=== PATIENT | male | born 1965 | race Caucasian/White ===

== ENCOUNTER 2025-03-27 01:23 | Observation (INO) | payer OTHER ==
[2025-03-27] MEDS ORDERED: HYDROMORPHONE HCL 1 MG/ML INJ ONE ×2 (02:07→03:20)
[2025-03-27] MEDS ORDERED: ONDANSETRON 4 MG/2 ML VIAL ONE ×2 (02:07→03:10)
[2025-03-27] MEDS ORDERED: LABETALOL 20 MG/4ML SYRINGE IV ONE ×2 (02:07→04:50)
[2025-03-27 02:27] LABS: PT Prothrombin Time 12.4 SECONDS (10-13.0); Protime INR 1.1
[2025-03-27 02:30] LABS: Absolute Lymphocytes (CBC) 0.4 K/uL (0.7-4.9); Hematocrit 44.7 % (39.6-49.0); Hemoglobin 15.7 g/dL (13.6-17.9); MCH 31.2 pg (27.0-35.0); MCHC 35.0 g/dL (32.0-36.0); MCV 89.0 fL (80-100); MPV 8.1 fL (7.6-11.3); Nucleated RBC Absolute Count 0.0 (0-0); Nucleated Red Blood Cells % 0.2 % (0-0); RBC Red Blood Cell Count 5.02 M/uL (4.33-5.43); White Blood Count 3.40 thou/uL (4.3-10.9)
[2025-03-27 02:38] LABS: ALT/SGPT 125.0 U/L (16-61); AST/SGOT 106.0 U/L (15-37); Albumin 4.3 g/dL (3.4-5.0); Albumin/Globulin Ratio 1.3 (1.1-1.8); Alkaline Phosphatase 64.0 U/L (45-117); Anion Gap 14.5 mEq/L (5.0-15.0); BUN Blood Urea Nitrogen 12.0 mg/dL (7-18); Bilirubin Indirect, Calculated 1.4 mg/dL (0.2-0.8); Globulin 3.4 g/dL (2.3-3.5); Glucose Level 149.0 mg/dL (74-106); Magnesium 1.8 mg/dL (1.6-2.4); NT PRO-BNP 154.0 pg/mL (<125); Potassium 3.5 mEq/L (3.5-5.1); Troponin High Sensitivity 50.0 pg/mL (<58.9)
--- NOTE | 2025-03-27 02:48 | RAD REPORT ---
CLINICAL HISTORY: Pain. COMPARISON: None. TECHNIQUE: XR SHOULDER 2 OR MORE VIEWS LEFT 03/27/2025 1:31 AM CDT FINDINGS: There is no fracture. Joint spaces are preserved. Soft tissues are unremarkable. IMPRESSION: No acute osseous findings. Electronically signed by: Antwon Goodwin MD 03/27/2025 02:36 AM CDT Due to temporary technical issues with the PACS/[facility] reporting system, reports are being arlene d by the in-house radiologist without review as a courtesy to ensure prompt reporting the interpreting radiologist is fully responsible for the content of the report Transcribed Date/Time: 03/27/2025 2:48 AM
--- NOTE | 2025-03-27 04:11 | RAD REPORT ---
EXAM DESCRIPTION: CT NECK WITH IV CONTRAST 03/27/2025 3:45 AM CDT CLINICAL HISTORY: 59 years, Male, Left neck pain and swelling. COMPARISON: None. TECHNIQUE: Soft tissue protocol CT of the neck utilizing 3 mm slight thickness at 3 mm interval reconstruction a fter the administration of intravenous contrast. Subsequent 2-D multiplanar reformats in the coronal and sagittal plane were performed and reviewed. All CT scans at this facility use dose modulation, iterative reconstruction, and/or weight based dosi ng when appropriate to reduce radiation dose to as low as reasonably achievable. FINDINGS: The presence of the entire amalgam creates streak artifact limiting diagnostic value at the oropharyn x Sinuses: Visualized paranasal sinuses and mastoid air cells are clear. Soft tissues: No acute soft tissue edema. No retropharyngeal edema. Salivary glands: The parotid glands and submandibular glands demonstrate symmetric with normal size a nd configuration. No evidence for significant calculi. Pharynx: Epiglottis is normal. No airway compromise. No suspicious enhancing lesions. Mucosal surfaces are symmetric. [place] tonsils: [place] tonsils demonstrate to be normal in size and configuration. No evidence fo r peritonsillar abscess. Surface mucous of the base of the tongue: This surface mucosal demonstrate no significant surface abn ormalities in/or abnormal enhancing lesions.. Vallecula: The vallecula demonstrate unremarkable. Piriform sinus: Piriform sinuses demonstrate to be unremarkable. No significant abnormal masses.. Vocal cords: .Unremarkable. Proximal trachea: The proximal trachea demonstrate to be patent with no significant lesions. Nodes: No cervical lymphadenopathy is identified. Bones: No acute bone findings. Vascular: No vascular abnormalities identified. Minimal carotid bulb artery calcification. Thyroid: Within normal limits. Lung apices are clear. IMPRESSION: Unremarkable CT of the neck with contrast. Electronically signed by: Yobany Greer MD 03/27/2025 03:53 AM CDT Due to temporary technical issues with the PACS/[employer] reporting system, reports are being ralene d by the in-house radiologist without review as a courtesy to ensure prompt reporting the interpreting radiologist is fully responsible for the content of the report. Transcribed Date/Time: 03/27/2025 4:10 AM
--- NOTE | 2025-03-27 04:37 | RAD REPORT ---
CLINICAL HISTORY: Left shoulder and neck pain, dyspnea. COMPARISON: None. TECHNIQUE: CT CHEST ANGIOGRAPHY WITH IV CONTRAST on 03/27/2025 1:48 AM CDT. MIPS reconstructions were generated. This exam was performed according to our departmental dose-optimization program, which includes autom ated exposure control, adjustment of the mA and/or kV according to patient size and/or use of iterative reconstruction technique. MIP images were generated. FINDINGS: Thoracic aorta is normal in course and caliber without aneurysm or dissection. Pulmonary arteries are suboptimally opacified with no large central filling defects. There are postoperative changes at the GE junction. The heart is normal in size. There is no pericardial effusion. Intrathoracic lymph nodes are not enla rged. There is no pleural effusion, pleural thickening or pneumothorax. Central airways are patent. Lungs a re clear with no consolidation, mass or interstitial lung disease. There are no acute abnormalities within the limited images of the upper abdomen. There are no acute osseous findings. No suspicious bony lesions. IMPRESSION: No aortic dissection or aneurysm. No large or central pulmonary embolus. No pneumonia. Electronically signed by: Antwon Goodwin MD 03/27/2025 04:33 AM CDT RP Due to temporary technical issues with the PACS/[employer] reporting system, reports are being arlene d by the in-house radiologist without review as a courtesy to ensure prompt reporting the interpreting radiologist is fully responsible for the content of the report. Transcribed Date/Time: 03/27/2025 4:37 AM
[2025-03-27] MEDS ORDERED: METOCLOPRAMIDE 10 MG/2mL INJ ONE (04:49)
[2025-03-27] MEDS ORDERED: HYDRALAZINE HCL 20 MG/ML VIAL ONE (05:13)
--- NOTE | 2025-03-27 06:12 | EDPHYS ---
Physician Documentation [facility] Name: Waldemar Loza Age: 59 yrs Sex: Male : 1965 Arrival Date: 03/27/2025 Time: 01:23 Bed 4 Private MD: ED Physician Farhan Kaur HPI: 03/27 02:03 This 59 yrs old Male presents to ER via Ambulatory with complaints of Shoulder Pain. 3 02:03 59-year-old male with history of hypertension, mild diabetes on Mounjaro, presents to [facility] the ED with chief complaint left-sided neck pain and shoulder pain for 3 days progressively getting worse and now "swollen". He denies any direct trauma and states he "might of slept on it wrong". He also endorses shortness of breath on occasion without associated other symptoms. He denies chest pain, fever, cough, URI symptoms, known sick contacts, travel history,: Immobilization, prior DVT or PE, headache, back pain, abdominal pain, nausea, vomiting, diarrhea, syncope, near syncope, extremity pain, or any other signs or symptoms on ROS at this time.. Historical: - Allergies: 01:35 PENICILLINS; cp4 - Immunization history:: Adult Immunizations up to date. - Infectious Disease History:: Denies. - Social history:: Smoking status: Patient denies any tobacco usage or history of. ROS: 02:07 Constitutional: Negative for fever, chills, and weight loss, Eyes: Negative for injury, sp3 pain, redness, and discharge, ENT: Negative for injury, pain, and discharge, Neck: Negative for injury, pain, and swelling, Cardiovascular: Negative for chest pain, palpitations, and edema, Abdomen/GI: Negative for abdominal pain, nausea, vomiting, diarrhea, and constipation, Back: Negative for injury and pain, Skin: Negative for injury, rash, and discoloration, Neuro: Negative for headache, weakness, numbness, tingling, and seizure, Psych: Negative for depression, anxiety, suicide ideation, homicidal ideation, and hallucinations, Allergy/Immunology: Negative for hives, rash, and allergies, Endocrine: Negative for neck swelling, polydipsia, polyuria, polyphagia, and marked weight changes, Hematologic/Lymphatic: Negative for swollen nodes, abnormal bleeding, and unusual bruising, 02:07 All other systems are negative, Exam: 01:59 ECG was reviewed by the Attending Physician. EKG demonstrates normal sinus rhythm at 93 sp3 bpm with normal intervals, normal QRS, normal axis, nonspecific diffuse ST/T changes without evidence of acute ischemia. 02:07 Constitutional: This is a well developed, well nourished patient who is awake, alert, sp3 and in no acute distress. Eyes: Pupils equal round and reactive to light, extra-ocular motions intact. Lids and lashes normal. Conjunctiva and sclera are non-icteric and not injected. Cornea within normal limits. Periorbital areas with no swelling, redness, or edema. ENT: Nares patent. No nasal discharge, no septal abnormalities noted. External auditory canals are clear. Oropharynx with no redness, swelling, or masses, exudates, or evidence of obstruction, uvula midline. Mucous membranes moist. Chest/axilla: Normal chest wall appearance and motion. Nontender with no deformity. No lesions are appreciated. Cardiovascular: Regular rate and rhythm with a normal S1 and S2. No gallops, murmurs, or rubs. Normal PMI, no JVD. No pulse deficits. Respiratory: Lungs have equal breath sounds bilaterally, clear to auscultation and percussion. No rales, rhonchi or wheezes noted. No increased work of breathing, no retractions or nasal flaring. Abdomen/GI: Soft, non-tender, with normal bowel sounds. No distension or tympany. No guarding or rebound. No evidence of tenderness throughout. Back: No spinal tenderness. No costovertebral tenderness. Full range of motion. Skin: Warm, dry with normal turgor. Normal color with no rashes, no lesions, and no evidence of cellulitis. MS/ Extremity: Pulses equal, no cyanosis. Neurovascular intact. Full, normal range of motion. Neuro: Awake and alert, GCS 15, oriented to person, place, time, and situation. Cranial nerves II-XII grossly intact. Motor strength 5/5 in all extremities. Sensory grossly intact. Cerebellar exam normal. Normal gait. Psych: Awake, alert, with orientation to person, place and time. Behavior, mood, and affect are within normal limits. 02:07 Head/face: 02:09 Neck: Pain to palpation of the left lateral lower neck. Mild swelling noted. Breath sp3 sounds are clear., Vital Signs: 01:33 BP 204 / 121; Pulse 106; Resp 18; Temp 98.3; Pulse Ox 99% ; Weight 90.72 kg; Height 6 cp4 ft. 0 in. ; Pain 8/10; 02:19 BP 176 / 99; Pulse 89; Resp 18; Pulse Ox 99% ; cp4 03:17 BP 190 / 110; Pulse 87; Resp 16; Pulse Ox 97% ; vc1 04:41 BP 190 / 108; Pulse 85; Resp 18; Pulse Ox 95% ; cp4 05:15 BP 179 / 98; Pulse 73; Resp 18; Pulse Ox 98% ; cp4 05:41 BP 158 / 92; Pulse 76; Resp 18; Pulse Ox 95% ; cp4 06:34 BP 164 / 94; Pulse 76; Resp 18; Pulse Ox 97% ; cp4 01:33 Body Mass Index 27.12 (90.72 kg, 182.88 cm) cp4 01:33 Pain Scale: Adult cp4 MDM: 01:30 Medical Screening Exam initiated sp3 02:09 Data reviewed: vital signs, nurses notes, lab test result(s), EKG, radiologic studies. sp3 ED course: 59-year-old male with PMH above now with left shoulder and left neck pain for 3 days and mild shortness of breath. Differential diagnosis is broad. Consider musculoskeletal strain, torticollis, left shoulder strain, acute coronary syndrome, pulmonary pathology, SVC syndrome, among others. Blood pressure also noted to be high which could be due to essential hypertension versus pain versus both. Workup will include EKG, left shoulder x-ray put in by nursing staff, CT scan of the chest PE protocol, CT scan of the neck soft tissue with IV contrast, general labs and general supportive care. Dilaudid and Zofran for symptomatic control with labetalol if needed for further blood pressure management. Disposition pending workup and patient course.. 04:49 ED course: Patient states pain is improved however he still nauseated. I discussed his sp3 lab work with him including elevated bilirubin and LFTs which he states his doctor has been following and is not acute. CT scan of the neck and chest are negative. We will add Reglan IV, labetalol due to recurrence of hypertension and second troponin. Likely 23-hour observation with serial cardiac markers, blood pressure control and follow-up of symptoms.. 06:10 ED course: Blood pressure now 158/80. We will place in observation with serial cardiac sp3 markers and blood pressure control.. 03/27 01:48 Order name: Basic Metabolic Panel; Complete Time: 02:49 sp3 03/27 01:48 Order name: CBC with Diff; Complete Time: 02:49 sp3 03/27 01:48 Order name: LFT's; Complete Time: 02:49 sp3 03/27 01:48 Order name: Magnesium; Complete Time: 02:49 sp3 03/27 01:48 Order name: NT PRO-BNP; Complete Time: 02:49 sp3 03/27 01:48 Order name: PT-INR; Complete Time: 02:49 sp3 03/27 01:48 Order name: Troponin HS; Complete Time: 02:49 sp3 03/27 04:49 Order name: Troponin High Sensitivity; Complete Time: 06:10 sp3 03/27 07:04 Order name: CBC with Automated Diff EDMS 03/27 07:04 Order name: CBC with Automated Diff EDMS 03/27 07:04 Order name: CBC with Automated Diff EDMS 03/27 07:04 Order name: CBC with Automated Diff EDMS 03/27 07:04 Order name: Comprehensive Metabolic Panel EDMS 03/27 07:04 Order name: Comprehensive Metabolic Panel EDMS 03/27 07:04 Order name: Comprehensive Metabolic Panel EDMS 03/27 07:04 Order name: Comprehensive Metabolic Panel EDMS 03/27 07:04 Order name: Troponin High Sensitivity EDMS 03/27 07:04 Order name: Troponin High Sensitivity EDMS 03/27 07:04 Order name: Troponin High Sensitivity EDMS 03/27 01:31 Order name: XRAY Shoulder LEFT 2 view; Complete Time: 06: sp3 03/27 01:48 Order name: CT Chest For PE Angio; Complete Time: 06: sp3 03/27 02:08 Order name: CT Soft Tissue Neck W/contr; Complete Time: 06: sp3 03/27 01:48 Order name: Cardiac monitoring; Complete Time: 01:57 sp3 03/27 01:48 Order name: EKG - Nurse/Tech; Complete Time: 01:57 sp3 03/27 01:48 Order name: IV Saline Lock; Complete Time: 02:05 3 03/27 01:48 Order name: Labs collected and sent; Complete Time: 02:05 sp3 03/27 01:48 Order name: O2 Per Protocol; Complete Time: 01:57 sp3 03/27 01:48 Order name: O2 Sat Monitoring; Complete Time: 01:57 sp3 03/27 01:48 Order name: NPO; Complete Time: 01: sp3 Administered Medications: 02:11 Drug: HYDROmorphone IVP 1 mg IVP once Route: IVP; Site: right antecubital; cp4 03:22 Follow up: Response: No adverse reaction; Pain is decreased cp4 02:11 Drug: Ondansetron IVP 4 mg IVP once; over 2 minutes Route: IVP; Site: right antecubital;cp4 03:22 Follow up: Response: No adverse reaction; Nausea is decreased cp4 02:32 Drug: Labetalol IV 10 mg IV at calculated rate once Route: IV; Rate: calculated rate; cp4 Site: right antecubital; 03:22 Follow up: Response: Blood pressure is lowered; IV Status: Completed infusion cp4 03:14 Drug: Ondansetron IVP 4 mg IVP once; over 2 minutes Route: IVP; Site: right forearm; vc1 04:58 Follow up: Response: No adverse reaction; Nausea unchanged cp4 03:24 Drug: HYDROmorphone IVP 1 mg IVP once Route: IVP; Site: right forearm; cp4 04:58 Follow up: Response: No adverse reaction; Pain is decreased cp4 04:58 Drug: metoCLOPramide IVP 10 mg IVP once; over 1 to 2 minutes Route: IVP; Site: right cp4 forearm; 05:15 Follow up: Response: No adverse reaction; Nausea is decreased cp4 04:58 Drug: Labetalol IV 20 mg IV at calculated rate once over 2 mins Route: IV; Rate: cp4 calculated rate; Infused Over: 2 mins; Site: right forearm; 04:58 Follow up: IV Status: Completed infusion cp4 05:15 Drug: hydrALAZINE IVP 10 mg IVP once Route: IVP; Site: right forearm; cp4 06:35 Follow up: Response: No adverse reaction; Blood pressure is lowered cp4 09:23 Not Given (not available in ED): nebivoloL 2.5 mg PO once ll1 Disposition Summary: 03/27/25 06:12 Hospitalization Ordered Notes: Hospitalization Status: Observation sp3 Location: Telemetry/MedSurg (observation) sp3 Condition: Stable sp3 Problem: new sp3 Symptoms: are unchanged sp3 Bed/Room Type: Standard sp3 Provider: Vlad Orellana(03/27/25 06:21) la1 Room Assignment: 207(03/27/25 07:08) eb Diagnosis - Hypertensive urgency, vomiting, left shoulder pain sp3 Forms: - Medication Reconciliation Form sp3 - SBAR form sp3 - Leadership Thank You Letter sp3 Critical care time excluding procedures: 06:10 Critical care time: Bedside Care: 10 minutes, Consultation: 10 minutes, Family sp3 Intervention: 10 minutes. Total time: 30 minutes Signatures: Dispatcher [employer] EDMS Cong Guevara, [place] [employer]-Cla1 Toshia Rodriguez Setul, MD MD sp3 Argentina Martínez RN RN 1 Criss Cowan cp4 Jesusita Cheung RN ll1 Corrections: (The following items were deleted from the chart) 01:49 01:49 BASIC METABOLIC PANEL+C.LAB.BRZ ordered. EDMS EDMS 01:49 01:49 CBC+H.LAB.BRZ ordered. EDMS EDMS 01:49 01:49 HEPATIC FUNCTION+C.LAB.BRZ ordered. EDMS EDMS 01:49 01:49 MAGNESIUM+C.LAB.BRZ ordered. EDMS EDMS 01:49 01:49 PROBNP+C.LAB.BRZ ordered. EDMS EDMS 01:49 01:49 PROTIME (+INR)+COAG.LAB.BRZ ordered. EDMS EDMS 01:49 01:49 Troponin High Sensitivity+C.LAB.BRZ ordered. EDMS EDMS 01:49 01:49 Chest For PE Angio+CT.RAD.BRZ ordered. EDMS EDMS 02:09 02:07 Constitutional: This is a well developed, well nourished patient who is awake, sp3 alert, and in no acute distress. Eyes: Pupils equal round and reactive to light, extra-ocular motions intact. Lids and lashes normal. Conjunctiva and sclera are non-icteric and not injected. Cornea within normal limits. Periorbital areas with no swelling, redness, or edema. ENT: Nares patent. No nasal discharge, no septal abnormalities noted. External auditory canals are clear. Oropharynx with no redness, swelling, or masses, exudates, or evidence of obstruction, uvula midline. Mucous membranes moist. Chest/axilla: Normal chest wall appearance and motion. Nontender with no deformity. No lesions are appreciated. Cardiovascular: Regular rate and rhythm with a normal S1 and S2. No gallops, murmurs, or rubs. Normal PMI, no JVD. No pulse deficits. Respiratory: Lungs have equal breath sounds bilaterally, clear to auscultation and percussion. No rales, rhonchi or wheezes noted. No increased work of breathing, no retractions or nasal flaring. Abdomen/GI: Soft, non-tender, with normal bowel sounds. No distension or tympany. No guarding or rebound. No evidence of tenderness throughout. Back: No spinal tenderness. No costovertebral tenderness. Full range of motion. Skin: Warm, dry with normal turgor. Normal color with no rashes, no lesions, and no evidence of cellulitis. MS/ Extremity: Pulses equal, no cyanosis. Neurovascular intact. Full, normal range of motion. Neuro: Awake and alert, GCS 15, oriented to person, place, time, and situation. Cranial nerves II-XII grossly intact. Motor strength 5/5 in all extremities. Sensory grossly intact. Cerebellar exam normal. Normal gait. Psych: Awake, alert, with orientation to person, place and time. Behavior, mood, and affect are within normal limits. sp3 06:21 06:12 Brent, [facility] sp3 la1 07:08 06:12 sp3 eb
--- NOTE | 2025-03-27 06:12 | ER ---
Nurse's Notes [facility] Name: Waldemar Loza Age: 59 yrs Sex: Male : 1965 Arrival Date: 03/27/2025 Time: 01:23 Bed 4 Private MD: Diagnosis: Hypertensive urgency, vomiting, left shoulder pain Presentation: 03/27 01:33 Chief complaint: Patient states: left shoulder pain that has been ongoing for 3 days. cp4 Reports no injury. Took Tatum at 2100. Coronavirus screen: Client denies travel out of the [place] in the last 14 days. At this time, the client does not indicate any symptoms associated with coronavirus-19. Ebola Screen: Patient negative for fever greater than or equal to 101.5 degrees Fahrenheit, and additional compatible Ebola Virus Disease symptoms Patient denies exposure to infectious person. Patient denies travel to an Ebola-affected area in the 21 days before illness onset. No symptoms or risks identified at this time. Initial Sepsis Screen: Does the patient meet any 2 criteria? HR > 90 bpm. No. Patient's initial sepsis screen is negative. Does the patient have a suspected source of infection? No. Patient's initial sepsis screen is negative. Risk Assessment: Do you want to hurt yourself or someone else? Patient reports no desire to harm self or others. Onset of symptoms was March 23, 2025. 01:33 Method Of Arrival: Ambulatory 4 01:33 Acuity: LEO 3 cp4 Triage Assessment: 01:35 General: Appears in no apparent distress. uncomfortable, Behavior is calm, cooperative, cp4 appropriate for age. Pain: Complains of pain in anterior aspect of left shoulder and posterior aspect of left shoulder Pain does not radiate. Pain currently is 8 out of 10 on a pain scale. EENT: No signs and/or symptoms were reported regarding the EENT system. Neuro: Level of Consciousness is awake, alert, obeys commands, Oriented to person, place, time, situation. Cardiovascular: Patient's skin is warm and dry. Respiratory: Airway is patent Respiratory effort is even, unlabored. GI: No signs and/or symptoms were reported involving the gastrointestinal system. : No signs and/or symptoms were reported regarding the genitourinary system. Derm: No signs and/or symptoms reported regarding the dermatologic system. Musculoskeletal: Reports pain in anterior aspect of left shoulder and posterior aspect of left shoulder. Historical: - Allergies: 01:35 PENICILLINS; cp4 - Immunization history:: Adult Immunizations up to date. - Infectious Disease History:: Denies. - Social history:: Smoking status: Patient denies any tobacco usage or history of. Screenin:36 [facility] ED Fall Risk Assessment (Adult) History of falling in the last 3 months, cp4 including since admission No falls in past 3 months (0 pts) Confusion or Disorientation No (0 pts) Intoxicated or Sedated No (0 pts) Impaired Gait No (0 pts) Mobility Assist Device Used No (0 pt) Altered Elimination No (0 pt) Score/Fall Risk Level 0 - 2 = Low Risk Oriented to surroundings, Maintained a safe environment, Assessed \T\ reinforced patient's understanding of fall precautions, Hourly rounding (assess needs \T\ fall precautionary measures) done. Abuse screen: Denies threats or abuse. Denies injuries from another. Nutritional screening: No deficits noted. Tuberculosis screening: No symptoms or risk factors identified. Never had TB. Assessment: 01:36 Reassessment: No changes from previously documented assessment. cp4 03:16 Reassessment: Patient appears in no apparent distress at this time. No changes from vc1 previously documented assessment. Patient and/or family updated on plan of care and expected duration. Pain level reassessed. Patient is alert, oriented x 3, equal unlabored respirations, skin warm/dry/pink. Vital Signs: 01:33 BP 204 / 121; Pulse 106; Resp 18; Temp 98.3; Pulse Ox 99% ; Weight 90.72 kg; Height 6 cp4 ft. 0 in. ; Pain 8/10; 02:19 BP 176 / 99; Pulse 89; Resp 18; Pulse Ox 99% ; cp4 03:17 BP 190 / 110; Pulse 87; Resp 16; Pulse Ox 97% ; vc1 04:41 BP 190 / 108; Pulse 85; Resp 18; Pulse Ox 95% ; cp4 05:15 BP 179 / 98; Pulse 73; Resp 18; Pulse Ox 98% ; cp4 05:41 BP 158 / 92; Pulse 76; Resp 18; Pulse Ox 95% ; cp4 06:34 BP 164 / 94; Pulse 76; Resp 18; Pulse Ox 97% ; cp4 01:33 Body Mass Index 27.12 (90.72 kg, 182.88 cm) cp4 01:33 Pain Scale: Adult cp4 ED Course: 01:28 Patient arrived in ED. vc1 01:29 Farhan Kaur MD is Attending Physician. vc1 01:33 Criss Cowan is Primary Nurse. cp4 01:34 Triage completed. cp4 01:35 Arm band placed on right wrist. Patient placed in waiting room. cp4 01:36 Bed in low position. Call light in reach. Side rails up X 1. cp4 01:36 No provider procedures requiring assistance completed. cp4 01:57 XRAY Shoulder LEFT 2 view In Process Unspecified. EDMS 02:04 Initial lab(s) drawn, by me, sent to lab. EKG done, by ED staff, reviewed by Criss Cowan. Inserted saline lock: 20 gauge in right antecubital area, using aseptic technique. Blood collected. Flushed with 10 mL NS. Inserted. 03:16 CT Chest For PE Angio In Process Unspecified. EDMS 03:16 CT Soft Tissue Neck W/contr In Process Unspecified. EDMS 06:11 Thalia Kennedy MD is Hospitalizing Provider. sp3 06:21 Hospitalizing Provider role handed off by Thalia Kennedy MD la1 06:21 Vlad Orellana MD is Hospitalizing Provider. la1 08:20 Provided Education on: upstairs admission within the hour, verbalized understanding. ll1 09:25 Patient admitted, IV remains in place. ll1 Administered Medications: 02:11 Drug: HYDROmorphone IVP 1 mg IVP once Route: IVP; Site: right antecubital; cp4 03:22 Follow up: Response: No adverse reaction; Pain is decreased cp4 02:11 Drug: Ondansetron IVP 4 mg IVP once; over 2 minutes Route: IVP; Site: right antecubital;cp4 03:22 Follow up: Response: No adverse reaction; Nausea is decreased cp4 02:32 Drug: Labetalol IV 10 mg IV at calculated rate once Route: IV; Rate: calculated rate; cp4 Site: right antecubital; 03:22 Follow up: Response: Blood pressure is lowered; IV Status: Completed infusion cp4 03:14 Drug: Ondansetron IVP 4 mg IVP once; over 2 minutes Route: IVP; Site: right forearm; vc1 04:58 Follow up: Response: No adverse reaction; Nausea unchanged cp4 03:24 Drug: HYDROmorphone IVP 1 mg IVP once Route: IVP; Site: right forearm; cp4 04:58 Follow up: Response: No adverse reaction; Pain is decreased cp4 04:58 Drug: metoCLOPramide IVP 10 mg IVP once; over 1 to 2 minutes Route: IVP; Site: right cp4 forearm; 05:15 Follow up: Response: No adverse reaction; Nausea is decreased cp4 04:58 Drug: Labetalol IV 20 mg IV at calculated rate once over 2 mins Route: IV; Rate: cp4 calculated rate; Infused Over: 2 mins; Site: right forearm; 04:58 Follow up: IV Status: Completed infusion cp4 05:15 Drug: hydrALAZINE IVP 10 mg IVP once Route: IVP; Site: right forearm; cp4 06:35 Follow up: Response: No adverse reaction; Blood pressure is lowered cp4 09:23 Not Given (not available in ED): nebivoloL 2.5 mg PO once ll1 Medication: 01:36 VIS not applicable for this client. cp4 Outcome: 06:12 Decision to Hospitalize by Provider. sp3 09:05 Admitted to Tele accompanied by nurse, via stretcher, with chart, ll1 09:05 Condition: stable 09:05 Instructed on the need for admit, 09:08 Patient left the ED. ss Signatures: Dispatcher [employer] EDMS Jewels Goodwin RN RN ss Cong Guevara, [employer] Jesusita Cheung RN RN ll1 Farhan Kaur MD MD sp3 Argentina Martínez RN RN 1 Criss Cowan cp4
--- NOTE | 2025-03-27 07:32 | P.HP ---
Certification for Inpatient Patient admitted to: Observation With expected LOS: <2 Midnights Patient will require the following post-hospital care: None Practitioner: I am a practitioner with admitting privileges, knowledge of patient current condition, hospital course, and medical plan of care. Services: Services provided to patient in accordance with Admission requirements found in Title 42 Section 412.3 of the Code of Federal Regulations Patient History Date of Service: 03/27/25 Reason for admission: Hypertensive urgency, shoulder/neck pain History of Present Illness: 59-year-old male with history of hypertension, hyperlipidemia, wag-[id number] diabetes presents the emergency department chief complaint of left neck/shoulder pain as well as nausea/vomiting and hypertension. He reports that has been having this left neck/shoulder pain for the last 3 days but it got much worse this morning, he also had an episode of nausea/vomiting w ith unclear etiology, he denies any abdominal pain. Nausea vomiting may have been a pain response. He is prescribed Nebivolol 2.5 mg daily which he has not been taking recently because when he goes out works in the hot sun his blood pressure drops and he nearly passes out. He denies any kind of recent cardiac evaluation. he was evaluated in the emergency department CT soft tissue of the neck was performed which was negative for any acute findings shoulder x-ray was obtained which was negative and CTA of the chest was performed which was negative for dissection or central PE. Additionally patient's initial high sensitive troponin was 50. Blood pressure was markedly elevated in the 180s over 1 teens on arrival, he was given IV medications with blood pressure now has improved. ED provider wishes to admit under observation for ACS rule out - Past Medical/Surgical History -: Hypertension -: Hyperlipidemia -: Zsa-niyglvn-ndcxxrbfu diabetes -: Multiple umbilical hernias -: Hiatal hernia with repair Psychosocial/ Personal History: Lives at home with his - Social History Alcohol use: No CD- Drugs: No Caffeine use: Yes Place of Residence: Home Review of Systems 10-point ROS is otherwise unremarkable Gastrointestinal: Nausea, Vomiting Musculoskeletal: Neck Pain, Shoulder Pain Physical Examination - Physical Exam General: Alert, In no apparent distress, Oriented x3 HEENT: Atraumatic, PERRLA Neck: Supple, 2+ carotid pulse no bruit, No LAD Respiratory: Clear to auscultation bilaterally, Normal air movement Cardiovascular: Regular rate/rhythm, Normal S1 S2 Gastrointestinal: Normal bowel sounds, No tenderness Musculoskeletal: No tenderness Integumentary: No rashes Neurological: Normal speech, Normal affect - Studies Laboratory Data (last 24 hrs) 03/27/25 03/27/25 03/27/25 02:02 02:02 02:02 WBC 3.40 L Hgb 15.7 Hct 44.7 Plt Count 100 L PT 12.4 INR 1.10 Sodium 134 L Potassium 3.5 BUN 12 Creatinine 1.09 Glucose 149 H Magnesium 1.8 Total Bilirubin 1.8 H AST 106 H ALT 125 H Alkaline Phosphatase 64 Assessment and Plan - Plan Assessment: Hypertensive urgency Left shoulder/neck pain-rule out ACS Hypertension Hyperlipidemia Vrk-fxsaovy-suhlgrgxp diabetes Plan: Hypertensive urgency Left shoulder/neck pain-rule out ACS Hypertension Pain seems to be more musculoskeletal Initial high sensitive troponin normal Trend troponin and monitor on telemetry Cardiology consultation Continue Nebivolol Denies any recent cardiac evaluation Hyperlipidemia Patient will continue Repatha outpatient Qev-jstnbcf-hjslwpvkx diabetes Manages with diet at home Carb consistent diet Also periodically takes Mounjaro at home Spot checks with daily labs for now for blood sugars consider sliding scale with Accu-Cheks if blood sugars persistently elevated DVT PPX: Lovenox Code status: Full code Discharge Plan: Home Plan to discharge in: 24 Hours - Advance Directives Does patient have a Living Will: No Does patient have a Durable POA for Healthcare: No - Code Status/Comfort Care Code Status Assessed: Yes (Full code) Critical Care: No Time Spent Managing Pts Care (In Minutes): 70
[2025-03-27] MEDS: HYDROCODONE/APAP 5/325 MG TAB PO PRN (09:11)
[2025-03-27] MEDS: ENOXAPARIN 40 MG/0.4 ML SQ SCH (09:12)
[2025-03-27 09:33] VITALS: BMI 26.9
[2025-03-27 09:38] VITALS: O2SAT 97
[2025-03-27] MEDS: ONDANSETRON 4 MG/2 ML VIAL IV PRN (09:53)
[2025-03-27] MEDS: NA CHLORIDE 0.9% 1,000 ML IV SCH (09:53)
[2025-03-27] MEDS: CYCLOBENZAPRINE 10 MG TAB PO PRN (14:01)
[2025-03-27] MEDS: NEBIVOLOL HCL 5 MG TAB PO SCH (14:53)
[2025-03-28 06:48] LABS: Absolute Lymphocytes (CBC) 1.0 K/uL (0.7-4.9); Hematocrit 37.6 % (39.6-49.0); Hemoglobin 13.0 g/dL (13.6-17.9); MCH 31.6 pg (27.0-35.0); MCHC 34.7 g/dL (32.0-36.0); MCV 90.9 fL (80-100); MPV 8.2 fL (7.6-11.3); Nucleated RBC Absolute Count 0.0 (0-0); Nucleated Red Blood Cells % 0.1 % (0-0); RBC Red Blood Cell Count 4.13 M/uL (4.33-5.43); White Blood Count 3.10 thou/uL (4.3-10.9)
[2025-03-28 07:01] LABS: ALT/SGPT 75.0 U/L (16-61); AST/SGOT 54.0 U/L (15-37); Albumin 3.3 g/dL (3.4-5.0); Albumin/Globulin Ratio 1.2 (1.1-1.8); Alkaline Phosphatase 48.0 U/L (45-117); Anion Gap 7.8 mEq/L (5.0-15.0); BUN Blood Urea Nitrogen 7.0 mg/dL (7-18); Globulin 2.8 g/dL (2.3-3.5); Glucose Level 97.0 mg/dL (74-106); Potassium 3.8 mEq/L (3.5-5.1)
[2025-03-28] MEDS: POTASSIUM CL SA 10 MEQ TAB PO ONE (08:57)
[2025-03-28 09:03] LABS: Blood Morphology Comment NOT SEEN (NOT SEEN); White Blood Cell Scan OK (OK)
--- NOTE | 2025-03-28 11:44 | P.CNS ---
Date of Consult: 03/28/25 Chief Complaint: Hypertensive urgency, shoulder/neck pain History of Present Illness: Patient with PMH of HTN, presented with high BP, neck and shoulder pain, denies chest pain, no palpitations, no syncope, no breathing problems. Allergies Penicillins Allergy (Verified 03/27/25 09:01) Itching Home medications list reviewed: Yes Home Medications: Evolocumab [Repatha Sureclick] 140 mg SQ INPT 03/27/25 Gabapentin 800 mg PO DAILY 03/27/25 Nebivolol HCl [Bystolic] 2.5 mg PO BEDTIME 03/27/25 Tirzepatide [Mounjaro] 5 mg SQ EVERY 7TH DAY 03/27/25 - Past Medical/Surgical History -: Hypertension -: Hyperlipidemia -: Aqx-myrmgxp-qbdfupdym diabetes -: Multiple umbilical hernias -: Hiatal hernia with repair Psychosocial/ Personal History: Lives at home with his - Social History Alcohol use: No CD- Drugs: No Caffeine use: Yes Place of Residence: Home Review of Systems 10-point ROS is otherwise unremarkable Physical Examination Temp Pulse Resp BP Pulse Ox 97.6 F 72 12 164/84 H 97 03/28/25 08:00 03/28/25 08:57 03/28/25 08:00 03/28/25 08:57 03/28/25 08:00 General: Alert, In no apparent distress HEENT: Atraumatic, PERRLA, Mucous membr. moist/pink, EOMI, Sclerae nonicteric Neck: Supple, 2+ carotid pulse no bruit, No LAD, Without JVD or thyroid abnormality Respiratory: Clear to auscultation bilaterally, Normal air movement Cardiovascular: Regular rate/rhythm, Normal S1 S2 Gastrointestinal: Normal bowel sounds, No tenderness Musculoskeletal: No tenderness Integumentary: No rashes Neurological: Normal gait, Normal speech, Normal tone, Normal affect Lymphatics: No axilla or inguinal lymphadenopathy - Problems (1) Neck pain Current Visit: Yes Status: Acute Plan: non cardiac in origin, recommend more imaging and work up by primary team cardiac enzymes are negative if echo is normal then patient can be discharged and follow up with cardiology as outpatient cardiology will sign off, please call with any questions. (2) HTN (hypertension) Current Visit: Yes Status: Acute Plan: recommend increasing Nebivolol to 5 mg daily continue to monitor BP at home
[2025-03-28 12:08] VITALS: BP 133/84; TEMP 98
== END 2025-03-28 13:48 | disposition home or self-care (01) ==
LOC: ER 01:23 → ERHOLD 06:59 → 2ND 07:34
PROVIDERS: ADMIT Hospitalist; ATTEND Hospitalist
DX: I16.0 Hypertensive urgency (principal); M25.512 Pain in left shoulder; M54.2 Cervicalgia; R11.2 Nausea with vomiting, unspecified; I10 Essential (primary) hypertension; E78.5 Hyperlipidemia, unspecified; E11.9 Type 2 diabetes mellitus without complications; Z88.0 Allergy status to penicillin
CPT/HCPCS: 93005; 85025 ×2; 80048; 36415 ×2; 83735; 85610; 80076; 84484 ×4; 80053; 83880; 70491; 71275; 73030; 99285; Q9967; J0360; J2765; J1650; J1171 ×2; J2405 ×3; J7030 ×3; G0378